=== PATIENT | male | born 1940 | race Caucasian/White ===

== ENCOUNTER 2019-02-19 00:43 | Outpatient (CLI) | payer MEDICARE, BC, SELFPAY ==
--- NOTE | 2019-02-18 15:40 | NUR.NOTE ---
call from pt forwarded from RAD DEPT. RAD explained pt called about stress test 02/19 and states was unable to hear message left about meds to take/not take for test tomorrow. Call disconnected and pt did not call back. Called numbers in pt chart and Mrs. Preston asked if her spouse had an appointment here tomorrow. She offered that he had a stress test planned and that he knew not to take his heart med in the morning. that he had skipped it this morning also. I confirmed with her no caffeine tomorrow and no food 4hrs prior to testing.
--- NOTE | 2019-02-19 10:30 | ETT_ITS ---
*[facility]* *[facility]* [address] [place] [address] Stress Electrocardiography Nixon protocol Date of study: 02/19/2019 *PATIENT PRESENTATION* Height: 175.3cm (69in) Blood Pressure: Weight: 100kg (220lb) BSA: 2.24m^2 Ordering physician: Yajaira Buck Impressions: Indeterminate stress test. Summary: 1. Stress ECG conclusions: The stress ECG is indeterminate due to baseline ST/T wave abnormality. Occasional ventricular ectopy. 2. Stress: There is resting hypertension with a hypertensive response to stress. The patient experienced no chest pain during stress. Exercise capacity is moderately diminished for age. 3. Baseline ECG: SINUS RHYTHM, RBBB AND LAFB. HR 100. Indication: I20.1. History: REASON FOR TESTING:EXERTIONAL DYSPNEA- ONLY HURTS WHEN INHALLING. ONGOING FOR THE PAST 3 MONTHS. OCASSIONA ACHE IN LEFT CHEST AND LEFT ARM. PMH: BPH, HYPERLIPIDEMIA, HYPERTENSION, ANGINA, PUD, ANEMIA, DIABETES II, FAMILY HX: MOTHER- PACEMAKER. SMOKING: QUIT 50 YEARS. HAD SMOKED FOR 5 YEARS 04/11 PPD. EXCERCISE: WALKS 3-5 MILES 6 DAYS/WEEK UNTIL THE SEQUEIRA OCCURRED, DOWN TO 2 MILES 2X/WEEK. GOLFS OFTEN POSSIBLE Risk factors: Family history of coronary artery disease. Hypertension. Diabetes mellitus. Obesity. Dyslipidemia. Cholesterol: 125mg/dl. HDL: 66mg/dl. LDL: 41mg/dl. Triglycerides: 91mg/dl. ALLERGIES: SULFUR MEDICATIONS: METOPROLOL SUCCINATE 50 MG DAILY, OMEPRASOLE 40 MG DAILY, ATORVASTATIN CALCIUM 80 MG DAILY, LOSARTAN POTASSIUM- HCTZ 100-25 DAILY, METFORMIN HCL 500 MG BID, FLOMAX 0.4 MG DAILY, FERROUS SULFATE 325 MG TID, FOLIC ACID 1 MG DAILY, VIT. B12 1000 MCG DAILY, ASPIRIN 325 MG DAILY. Protocol: Nixon protocol. Baseline ECG: SINUS RHYTHM, RBBB AND LAFB. HR 100. Stress protocol: + +---+ +----+ !Stage !HR !BP (mmHg) !Sat ! + +---+ +----+ !Baseline supine !100!168/58 (95)!----! + +---+ +----+ !Baseline standing !107!170/50 (90)!100%! + +---+ +----+ !Stage I; 1.7mph, 10degrees; 3 min!148!174/56 (95)!95% ! + +---+ +----+ !Recovery; 1 min !150!180/42 (88)!----! + +---+ +----+ !Recovery; 3 min !109!178/60 (99)!----! + +---+ +----+ !Recovery; 6 min !104!170/58 (95)!----! + +---+ +----+ * Stress results: There is resting hypertension with a hypertensive response to stress. The rate-pressure product for the peak heart rate and blood pressure was 57532rd Hg/min. The patient experienced no chest pain during stress. Exercise capacity is moderately diminished for age. Stress ECG: EXCERCISE TESTING ENDED IN 3 MINS. MAX HR WAS 150, 104% OF TARGET. HYPERTENSIVE AT BASELINE WITH A HYPERTENSIVE BLOOD PRESSURE RESPONSE. METS: 4.64 ECTOPY: FREQUENT PVC'S WITH OCCASTIONAL APC'S NOTED. ANGINA: NO REPORTED CHEST PAIN OR PRESSURE. The stress ECG is indeterminate due to baseline ST/T wave abnormality. Occasional ventricular ectopy. Study data: Cierra Willis MD supervised and was readily available during the procedure. This study was interpreted by [facility]. Study status: Routine. Consent: The risks, benefits, and alternatives to the procedure were explained to the patient and informed consent was obtained. Procedure: Initial setup. A baseline ECG was recorded. Surface ECG leads and manual cuff blood pressure measurements were monitored. Heart sounds: Normal. Lung sounds: Normal. Treadmill exercise testing was performed using the Nixon protocol. Study completion: The patient tolerated the procedure well and was discharged from the lab. Discharge: The patient left the laboratory in stable condition. Birthdate: Patient birthdate: 1940. Sex: Gender: male. Study date: Study date: 02/19/2019. Study time: 00:01 AM. Signature Documentation: The Stress ECG portion of this study was interpreted by Cierra Willis MD. Electronically signed by Cirera Willis 02/20/2019 12:33
== END 2019-02-19 01:03 ==
PROVIDERS: PCP Internal Medicine; Visit Provider Internal Medicine
DX: I20.1 Angina pectoris with documented spasm (principal); R06.09 Other forms of dyspnea; R07.9 Chest pain, unspecified; I10 Essential (primary) hypertension; E78.5 Hyperlipidemia, unspecified; Z82.49 Family history of ischemic heart disease and other diseases of the circulatory system
CPT/HCPCS: 93016; 93018; 93017

== ENCOUNTER 2019-03-10 00:31 | Outpatient (CLI) | payer MEDICARE, BC, SELFPAY ==
[2019-03-10] MEDS: Regadenoson 0.4 MG/5 ML SYR IVP (09:18)
--- NOTE | 2019-03-10 10:43 | DI.NM_ITS ---
APPROVED REPORT Exam: Pharmacologic Patient Location: Out-Patient Room/Bed: Stress Nurse: Viji Franco RN Rhythm: RBBB, LAFB, Borderline Prolonged QT interval Indications: Reason for visit: Pt had an indeterminant stress test on 02/19/[address]/T w ave abnormality. 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 Pt reports chest pains daily with activity he s tates that when he walks up a mild incline he always gets midsternal chest pains associated with SOB and it will ocassionally radiate down his left arm. Pt reports the chest pain will subside with rest. Medical History Medical History: Diabetic ??? Noninsulin, HTN, Hyperlipidemia Medications: Metoprolol, Losartan, Omeprazole, Atorvastatin, HCTZ, Metformin HCL, Aspirin. Allergies: Sulfa Cardiac Risk Factors: HTN, Hyperlipidemia, DM, FHX of CAD, SOB Pretest Chest Pain Characteristics: Exertional Chest pain Exercise History: Indeterminate Stress Test Details Test: Pharmacologic stress testing performed using 0.4 mg of regadenoson per 5 mL given IV over 10 s econds. Reason for pharmacologic stress test: RBBB with a LAFB. Rest Isotope: Tc-99m Sestamibi. Dose: 11.0 Date: 03/10/2019 Injection Time: 0815 Stress Isotope: Tc-99m Sestamibi. Dose: 31.1 Date: 03/10/2019 Injection Time: 0940 HR Resting HR: 93 bpm Max Heart Rate (APMHR): 143 bpm Target HR (85% APMHR): 121 bpm HR response to stress: Normal HR response to stress BP Resting BP: 180/78 mmHg Max BP: 180/78 mmHg BP response to stress: Normal blood pressure response to stress. ECG Resting ECG: RBBB, LAFB, Borderline prolonged QT interval Stress ECG: Sinus Tachycardia ST Change: Normal, , Horizontal ST depression Arrhythmia: None Recovery ECG: Sinus Rhythm, RBBB Recovery Arrhythmia: None Medications Administered Sestamibi (11.0 mg at ) Sestamibi (31.1 mg at ) Clinical Reason for Termination: Completed protocol Stress Symptoms: none Angina Score: None Stress ECG Conclusion 1. Normal hemodynamic response to pharmacologic stress. 2. ECG: Non-ischemic 3. Imaging: Non-ischemic 4. This represents a normal study No prior study available for comparison. Test Summary Supine 00:00 0 0 98 1 180/78 117 186/62 1 min post injection 107 162/70 3 min post injection 101 158/54 6 min post injection
== END 2019-03-10 00:51 ==
PROVIDERS: PCP Internal Medicine; Visit Provider Internal Medicine
DX: R07.89 Other chest pain (principal); I20.9 Angina pectoris, unspecified; R94.30 Abnormal result of cardiovascular function study, unspecified; R06.02 Shortness of breath; I10 Essential (primary) hypertension; E78.5 Hyperlipidemia, unspecified; Z82.49 Family history of ischemic heart disease and other diseases of the circulatory system
CPT/HCPCS: 78452; 93016; 93018; 93017; J2785